=== PATIENT | female | born 1965 | race Caucasian/White ===

== ENCOUNTER 2020-10-31 09:58 | Outpatient (REF) | payer OTHER, SELFPAY ==
[2020-11-02 18:37] LABS: HPV mRNA E6/E7 Not Detected (Not Detected)
== END 2020-10-31 09:59 | disposition home or self-care (01) ==
LOC: HO.LAB 09:58
PROVIDERS: Visit Provider Internal Medicine
DX: Z01.419 Encounter for gynecological examination (general) (routine) without abnormal findings (principal)
CPT/HCPCS: 87624; 88142

== ENCOUNTER 2020-10-31 10:23 | Outpatient (REF) | payer OTHER, SELFPAY ==
[2020-10-31 11:22] LABS: Hematocrit 34.6 % (37-47); Hemoglobin 11.6 g/dl (12.0-16.0); Mean Corpuscular HGB Conc 33.5 g/dl (31.0-35.0); Mean Corpuscular Hemoglobin 29.4 pg (27.0-33.0); Mean Corpuscular Volume 87.8 fL (80-98); Platelet Count 229 X10*3/uL (160-400); Red Blood Count 3.94 X10*6/uL (4.20-5.50); Red Cell Distribution Width 13.3 % (11.0-16.0)
[2020-10-31 12:05] LABS: Alanine Aminotransferase 25 U/L (0-31); Albumin Level 4.4 g/dL (3.5-5.0); Alkaline Phosphatase 61 U/L (39-117); Anion Gap 13 (12-20); Aspartate Amino Transferase 20 U/L (5-31); Bilirubin Total 0.7 mg/dL (0.0-1.0); Blood Urea Nitrogen 14 mg/dL (9-16); Calcium 9.8 mg/dL (8.4-10.2); Carbon Dioxide 26 mmol/L (22-29); Chloride 107 mmol/L (96-108); Cholesterol 194 mg/dL; Estimated Glomerular Filt Rate > 60; Glucose Fasting 99 mg/dL (60-99); HDL Cholesterol 103 mg/dL; Iron 81 mcg/dL (30-160); LDL Cholesterol Calculated 81 mg/dl; Percent Iron Saturation 28 % (15-50); Potassium 3.6 mmol/L (3.3-5.1); Sodium 142 mmol/L (135-145); Total Iron Binding Capacity 293 mcg/dL (228-428); Triglycerides 50 mg/dL; Unsaturated Iron Binding 212 ug/dL
[2020-10-31 13:49] LABS: Glucose Urine UA NEG (NEG); Leukocyte Esterase Urine TRACE (NEG); Nitrite Urine NEG (NEG); PH 6.5 (5.0-8.0); Specific Gravity - Urine <= 1.005 (1.005-1.025); Urine Blood 2+ (NEG); Urine Ketones NEG (NEG); Urine Protein NEG (NEG-TRACE)
[2020-10-31 13:55] LABS: Appearance Urine CLEAR; Color Urine STRAW
[2020-10-31 14:09] LABS: Squamous Epithelial Cell Urine 1+ /LPF; WBC Urine 0 /HPF (0-4)
== END 2020-10-31 10:24 | disposition home or self-care (01) ==
LOC: HO.HMGCLDS 10:23
PROVIDERS: PCP Internal Medicine; Visit Provider Internal Medicine
DX: Z00.00 Encounter for general adult medical examination without abnormal findings (principal)
CPT/HCPCS: 36415; 80053; 80061; 81001; 83540; 84443; 85027

== ENCOUNTER 2023-07-30 09:45 | Outpatient (AMB) | payer OTHER, SELFPAY ==
[2023-07-30 09:48] VITALS: BP 120/78; PULSE 102; O2SAT 97; BMI 22.1
--- NOTE | 2023-07-30 09:48 | A.OFFPC_ITS ---
Vital Signs 07/30/23 09:48 Height 5 ft 5 in Weight 133 lb BMI 22.1 BP 120/78 Blood Pressure Location Rt brachial Position Sitting Pulse 102 H Pulse Source Pulse Oximeter Pulse Oximetry (%) 97 Oxygen Delivery Method Room Air Intake Visit Reasons: Sick visit (adolescent/adult) Intake Note: Pt is here today for a sick visit. Pt c/o L abdominal pain for about 2 weeks. Pt states that the pain starts after eating. Allergies No Known Allergies Allergy (Verified 07/30/23 09:54) Medication List - Last Reconciled 07/30/23 by Oma Christopher MD No Known Home Meds Tobacco use date assessed: 07/30/23 Dental Screening Dental Screen Date: 07/30/23 Did you have a dental visit in the last 12 months?: Yes Did you have a dental problem in the last 6 months where you did not have access to dental care?: No Was dental information given to patient?: Patient has dentist HPI Sick visit (adolescent/adult) HPI Details Pt c/o L side mid and lower abd pain worse after eating, radiating to L flank, increase bloating and intermittent constipation worse for the last 2 weeks. Patient denies nausea vomiting fever chills dysuria, hematuria pelvic pain. [facility] Medical History Microscopic hematuria Colonoscopy refused Mammogram declined Annual physical exam Surgical History No pertinent past surgical history Social History Housing: House Patient Tobacco Use Status: Never used Tobacco e-Cigarette/Vaping Use: Never Used Second Hand Smoke Exposure: No service: No Current occupational status: employed Current occupational exposures/hazards: No Cognitive needs: No Hearing needs: No Vision needs: Yes Questionnaire PHQ-9 Over the last 2 weeks, how often have you been bothered by any of the following problems? 1. Little interest or pleasure in doing things: not at all 2. Feeling down, depressed, or hopeless: not at all 3. Trouble falling or staying asleep, or sleeping too much: not at all 4. Feeling tired or having little energy: not at all 5. Poor appetite or overeating: not at all 6. Feeling bad about yourself - or that you are a failure or have let yourself or your family down: not at all 7. Trouble concentrating on things, such as reading the newspaper or watching television: not at all 8. Moving or speaking so slowly that other people could have noticed. Or the opposite - being so fidgety or restless that you have been moving around a lot more than usual: not at all 9. Thoughts that you would be better off or of hurting yourself in some way: not at all Total score: 0 Depression Screening Interpretation: Negative Depression Screening Done: Yes Source: Developed by Drs. Luis Joseph, Marianela Vasquez, Dalton Shaffer and colleagues, with an educational tico from [employer]. Thrive Questionnaire Date Thrive assessed: 07/30/23 I am a: Patient What is your living situation today?: I have a steady place to live Within the past 12 months, did the food you bought not last and you didn't have the money to get more?: Never true Within the past 12 months, did you worry whether your food would run out before you got money to buy more?: Never true Do you have trouble paying for medicines?: No Do you have trouble getting transportation to medical appointments?: No Do you have trouble paying your heating and electricity bill?: No Do you have trouble taking care of your child, family member or friend?: No Do you have trouble with day-to-day activities such as bathing, preparing meals, shopping, managing finances, etc.?: No Are you currently unemployed and looking for a job?: No Are you interested in more education?: No Please select the resources that you would like help with: None Currently or been in a relationship where the following occur: no concerns reported THRIVE Score: 0 AUDIT C Alcohol Use Questionnaire (AUDIT-C) 1. How often do you have a drink containing alcohol?: Never 3. How often do you have six or more drinks on one occasion?: Never Total Score: 0 DARYL-7 AMB Questionnaire DARYL-7 Date DARYL - 7 assessed: 07/30/23 Feeling nervous, anxious, or on edge: 0 = Not at all Not being able to stop or control worryin = Not at all Worrying too much about different things: 0 = Not at all Trouble relaxin = Not at all Being so restless that it is hard to sit still: 0 = Not at all Becoming easily annoyed or irritable: 0 = Not at all Feeling afraid as if something awful might happen: 0 = Not at all Total DARYL-7 score (0-4 normal; 5-9 mild; 10-14 moderate; 15-21 severe): 0 Source: Developed by Drs. Luis Joseph, Marianela Vasquez, Dalton Shaffer and colleagues, with an educational tico from [employer]. Review of Systems Const All systems reviewed & are unremarkable except as noted in HPI and below Eyes Reports no additional complaints ENT Reports no additional complaints Card Reports no additional complaints Resp Reports no additional complaints GI Reports no additional complaints Reports no additional complaints Physical exam (Primary Care) Vital Signs: Last Vital Signs Pulse 102 H 07/30/23 09:48 BP 120/78 07/30/23 09:48 Pulse Ox 97 07/30/23 09:48 Oxygen Delivery Method Room Air 07/30/23 09:48 BMI result Body Mass Index 22.1 Tobacco/Smoking Status: Tobacco use Status Tobacco use date assessed 07/30/23 07/30/23 09:58 Patient Tobacco Use Status Never used Tobacco 07/30/23 09:58 e-Cigarette/Vaping Use Never Used 07/30/23 09:58 PHQ-9: PHQ-9 Score PHQ-9: Total score 0 07/30/23 09:58 Depression Screening Interpretation: Negative Thrive Assessment: Date of Thrive Assessment Date Thrive assessed 07/30/23 07/30/23 09:58 Currently or been in a relationship where the following occur: no concerns reported Const General: no acute distress HENMT Face and sinus: Yes normal facial exam Resp Effort & Inspection: normal respiratory effort Auscultation: clear to auscultation bilaterally Cardio Rhythm: regular rhythm Heart sounds: S1 normal heart sound present and S2 normal heart sound present GI Inspection: Yes normal to inspection Palpation (GI): Soft to palpation, Tenderness to palpation present (GI) in the LLQ and No Rebound tenderness present Auscultation: normal bowel sounds Assessment and Plan Assessment & Plan (1) LLQ abdominal pain: Code(s): R10.32 - Left lower quadrant pain Plan: For left lower quadrant abdominal pain CT will be obtained to rule diverticulitis, basic labs and urinalysis will be checked. Patient will be referred to GI for colonoscopy Orders: Orders Comprehensive Met. Panel Today R10.32 - Left lower quadrant pain CT abdomen pelvis w IV con Today K57.92 - Diverticulitis of intestine, part unspecified, without perforation or abscess without bleeding, R10.32 - Left lower quadrant pain UA w Microscopic Today R10.32 - Left lower quadrant pain Complete Blood Count Auto Diff Today R10.32 - Left lower quadrant pain C Reactive Protein Today R10.32 - Left lower quadrant pain Referrals Gastroenterology Referral Z00.00 - Encounter for general adult medical examination without abnormal findings Coding Level of Care Code Est Pt Level 3 (05480) Diagnoses LLQ abdominal pain R10.32
== END 2023-07-30 10:49 | disposition home or self-care (01) ==
PROVIDERS: PCP Internal Medicine; Visit Provider Internal Medicine
DX: R10.32 Left lower quadrant pain (principal)
CPT/HCPCS: 99213

== ENCOUNTER 2023-07-30 10:43 | Outpatient (REF) | payer OTHER, SELFPAY ==
[2023-07-30 13:26] LABS: MANUAL DIFF FLAG NO
[2023-07-30 13:48] LABS: Basophils Percent Auto 0.5 % (0-2); Eosinophils Absolute Auto 0.1 X10*3/uL (0.0-0.4); Eosinophils Percent Auto 0.9 % (0-4); Hematocrit 35.9 % (37.0-47.0); Imm Gran Abs Auto 0.01 X10*3/uL (0.00-0.03); Imm Gran Pct Auto 0.2 % (0.0-0.4); Lymphocytes Absolute Auto 2.6 X10*3/uL (1.2-4.9); Lymphocytes Percent Auto 40.1 % (20-40); Mean Corpuscular HGB Conc 33.4 g/dl (31.0-35.0); Mean Corpuscular Hemoglobin 29.5 pg (27.0-33.0); Mean Corpuscular Volume 88.2 fL (80.0-98.0); Mean Platelet Volume 10.4 fL (9.4-12.3); Monocytes Absolute Auto 0.6 X10*3/uL (0.1-1.2); Monocytes Percent Auto 9.1 % (2-11); Neutrophils Absolute Auto 3.1 x10*3/uL (2.0-8.3); Neutrophils Percent Auto 49.2 % (45-73); Platelet Count 248 X10*3/uL (160-400); Red Blood Count 4.07 X10*6/uL (4.20-5.50); Red Cell Distribution Width 13.2 % (11.0-16.0); White Blood Count 6.4 X10*3/uL (4.8-10.8)
[2023-07-30 13:52] LABS: Appearance Urine Clear; Color Urine Yellow; Glucose Urine UA Negative (Negative); Leukocyte Esterase Urine Negative (Negative); Nitrite Urine Negative (Negative); Specific Gravity - Urine <= 1.005 (1.005-1.025); UMIC TRIGGER UA YES; Urine Blood Moderate (2+) (Negative); Urine Ketones Negative (Negative); Urine Protein Negative (Neg-Trace)
[2023-07-30 14:00] LABS: Bacteria Urine None Seen (None Seen); Hyaline Casts Urine 0-2 /LPF (0-2); Squamous Epithelial Cell Urine 0-2 /HPF (0-2); WBC Urine 0-5 /HPF (0-5)
[2023-07-30 14:26] LABS: Alanine Aminotransferase 25 U/L (0-31); Albumin Level 4.2 g/dL (3.5-5.0); Alkaline Phosphatase 59 U/L (39-117); Anion Gap 12 (12-20); Aspartate Amino Transferase 24 U/L (5-31); Bilirubin Total 0.4 mg/dL (0.0-1.0); Blood Urea Nitrogen 18 mg/dL (9-16); C Reactive Protein 0.14 mg/dL (< or = 0.50); Calcium 9.8 mg/dL (8.4-10.2); Carbon Dioxide 27 mmol/L (22-29); Chloride 107 mmol/L (96-108); Estimated Glomerular Filt Rate > 60; Glucose Random 102 mg/dL (60-115); Potassium 3.7 mmol/L (3.3-5.1); Sodium 142 mmol/L (135-145); Total Protein 7.3 g/dL (6.5-8.0)
== END 2023-07-30 10:44 | disposition home or self-care (01) ==
LOC: HO.HMGCLDS 10:43
PROVIDERS: PCP Internal Medicine; Visit Provider Internal Medicine
DX: R10.32 Left lower quadrant pain (principal)
CPT/HCPCS: 36415; 80053; 81001; 85025; 86140

== ENCOUNTER 2023-07-31 12:11 | Outpatient (REF) | payer OTHER, SELFPAY ==
--- NOTE | ~2023-07-31 | CT_ITS ---
EXAMINATION: CT ABDOMEN AND PELVIS WITH CONTRAST CLINICAL INFORMATION: Left lower quadrant pain. COMPARISON: None available. TECHNIQUE: Multidetector volumetric images were obtained from the superior aspect of the liver through the pubic symphysis following administration 85 mL of Omnipaque 350 intravenous contrast. Sagittal and coronal reformatted images were obtained on the technologist's workstation. Oral contrast: Yes. This CT examination was performed using dose optimization techniques as appropriate, variously including the following: *Automated exposure control *Adjustment of mA and/or kV according to patient size (this includes techniques or standardized protocols for targeted exams where dose is matched to indication/reason for exam; i.e. extremities or head) *Use of iterative reconstruction technique DLP: 291 mGy-cm FINDINGS: LUNG BASES: No pulmonary consolidation or pleural effusion. HEPATOBILIARY: Liver has normal size, shape, and attenuation. Gallbladder has a normal appearance. No dilated bile ducts. PANCREAS: No edema, pancreatic ductal dilatation or mass. SPLEEN: Normal. ADRENAL GLANDS: Normal. KIDNEYS AND URETERS: Kidneys have normal size and cortical thickness. No perinephric fluid collection, urolithiasis or hydroureteronephrosis. A simple cyst of the left lower pole is 1.1 cm AP. No renal imaging follow-up is recommended for simple cysts. BLADDER: Normal. BOWEL AND PERITONEUM: Stomach and small bowel are unremarkable. No dilated loops. The appendix is normal. No overt colonic wall thickening or mesenteric fat stranding. No free fluid or pneumoperitoneum. ABDOMINAL WALL: Unremarkable. VASCULATURE: Abdominal aorta is normal in caliber and its branches are widely patent. Inferior vena cava is normal. LYMPH NODES: No pathologic sized lymph nodes in the abdomen or pelvis. No inguinal lymphadenopathy. PELVIC VISCERA: No evidence of uterine or adnexal mass. No pelvic free fluid. MUSCULOSKELETAL: No acute or suspicious osseous abnormality. 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 CT/CT abdomen pelvis w IV con IMPRESSION: No acute imaging abnormalities in the abdomen or pelvis. No specific source of left lower quadrant pain is identified. There is no evidence of an inflammatory process, free fluid or free air.
[2023-07-31] MEDS: Barium Sulfate Oral (Mocha) 450 ML ORAL.SUSP 900 ML PO (15:10)
[2023-07-31] MEDS: iohexoL 350 MG/ML 75 ML INFUS..BTL 85 ML IV (15:11)
== END 2023-07-31 12:12 | disposition home or self-care (01) ==
LOC: HO.CT 12:11
PROVIDERS: PCP Internal Medicine; Visit Provider Internal Medicine
DX: R10.32 Left lower quadrant pain (principal); K57.92 Diverticulitis of intestine, part unspecified, without perforation or abscess without bleeding
CPT/HCPCS: 74177; Q9967

== ENCOUNTER 2023-08-07 09:18 | Outpatient (REF) | payer OTHER, SELFPAY ==
[2023-08-07 10:13] LABS: Urine Cytology See Pathology rpt
== END 2023-08-07 09:19 | disposition home or self-care (01) ==
LOC: HO.HMGCLDS 09:18
PROVIDERS: PCP Internal Medicine; Visit Provider Internal Medicine
DX: R31.29 Other microscopic hematuria (principal)
CPT/HCPCS: 87086; 88112

== ENCOUNTER 2023-09-26 10:03 | Outpatient (AMB) | payer OTHER, SELFPAY ==
--- NOTE | 2023-09-26 10:21 | MHC.OFFVIS ---
Intake Visit Reasons: micorscopic hematuria Intake Note: New patient is present for Microscopic Hematuria. Patient was referred by her Primary Physician Last Urine Cytology was performed July 2023 Patient states that she does not visibly see any blood in her urine only when she gets her urine checked. Antibiotic Allergies:None Blood Thinner: None Allergies No Known Allergies Allergy (Verified 10/21/23 13:15) HPI Comments Details: Wale schofield is a pleasant female. She is a patient of . She is seen following urologic conditions - microscopic hematuria Microscopic hematuria UA 1+ Imaging 08/19 CT left lower pole 1.5 cm simple cyst Cytology negative Recommend cystoscopy PFS Medical History Microscopic hematuria Colonoscopy refused Mammogram declined Annual physical exam Surgical History No pertinent past surgical history Social History Housing: House Patient Tobacco Use Status: Never used Tobacco e-Cigarette/Vaping Use: Never Used Second Hand Smoke Exposure: No service: No Current occupational status: employed Current occupational exposures/hazards: No Cognitive needs: No Hearing needs: No Vision needs: Yes Review of Systems Const Denies chills and Denies fever(s) Card Reports no additional complaints and Denies syncope Resp Denies cough GI Denies abdominal pain and Denies heartburn Reports as per HPI and Denies change in libido Neuro Denies syncope Psych Denies change in libido Endo Denies change in libido Physical Exam Const General: cooperative, healthy appearing, comfortable and no acute distress Orientation/consciousness: patient oriented x3 HEENT Face and sinus: Yes normal facial exam Mouth: moist mucous membranes Neck Neck: Yes normal visual inspection, Yes full ROM and Yes trachea midline Chest Chest palpation & inspection: normal inspection of the chest Resp Effort & Inspection: normal respiratory effort, able to speak in complete sentences and no respiratory distress GI Inspection: Yes normal to inspection Back/Spine/Pelvis Cervical Spine: normal cervical lordosis Thoracic/Lumbar Spine: thoracic and lumbar spine normal to inspection Skin General skin exam: no rashes or lesions noted Neuro General: patient oriented x3, gait normal, tone normal and moves all extremities Extrem General: Yes normal to inspection and Yes capillary refill normal Results AMB Urinalysis, Automated UA Leukoctes 0 Suzanna/uL Last Edit by Whit Conklin, [facility] on 09/26/23 10:33 UA Nitrite Negative Last Edit by Whit Conklin, A on 09/26/23 10:33 UA Urobilinogen 0.2 mg/dL Last Edit by Whit Conklin, A on 09/26/23 10:33 UA Protein 0 mg/dL Last Edit by Whit Conklin, A on 09/26/23 10:33 UA pH 7.0 Last Edit by Whit Conklin, A on 09/26/23 10:33 UA Blood 25 Chase/uL Last Edit by Whit Conklin [facility] on 09/26/23 10:33 UA Specific [place] 1.005 Last Edit by Whit Conklin, A on 09/26/23 10:33 UA Ketone Negative Last Edit by Whit Conklin [facility] on 09/26/23 10:33 UA Bilirubin 0 mg/dL Last Edit by Whit Conklin [facility] on 09/26/23 10:33 UA Glucose 0 mg/dL Last Edit by Whit Conklin, [facility] on 09/26/23 10:33 Results Reviewed Results Reviewed: Laboratory Last Values Urine pH (Auto) 7.0 09/26/23 10:33 Specific [place] (Auto) 1.005 09/26/23 10:33 Urine Protein (Auto) 0 mg/dL 09/26/23 10:33 Glucose (UA)(Auto) 0 mg/dL 09/26/23 10:33 Urine Ketones (Auto) Negative 09/26/23 10:33 Urine Blood (Auto) 25 Chase/uL 09/26/23 10:33 Urine Nitrite (Auto) Negative 09/26/23 10:33 Urine Bilirubin (Auto) 0 mg/dL 09/26/23 10:33 Urine Urobilinogen (Auto) 0.2 mg/dL 09/26/23 10:33 Leukocyte Esterase (Auto) 0 Suzanna/uL 09/26/23 10:33 Assessment & Plan Assessment & Plan (1) Microscopic hematuria: Code(s): R31.29 - Other microscopic hematuria Category: Medical Plan Cystoscopy Orders: Orders AMB Urinalysis Automated 09/26/23 Z13.9 - Encounter for screening, unspecified, R31.29 - Other microscopic hematuria Patient Instructions: Imaging studies, laboratory and physical exam results were discussed and reviewed in detail. No major barriers to patient understanding were identified. An opportunity to ask questions regarding the treatment plan was provided. All questions were answered. The patient expressed understanding and agreement with the above treatment plan. The patient is aware they should contact our office by phone for worsening of their current condition or the appearance of new urologic symptoms. Compliance is encouraged with any medications and followup testing that is ordered. It is a privilege to participate in the urologic care of your patient. If you have any questions or concerns regarding treatment for the above conditions, or other urologic issues, please do not hesitate to contact me. The office telephone contact is [phone]. This note is constructed using voice recognition software. While every effort has been made to ensure accuracy audioprosthologist errors may have been included. Yours sincerely, Dr Alfonso Cartagena MD, [facility] - Urology Providers of Expert, Compassionate Care for the Genitourinary System Coding Level of Care Code New Pt Level 3 (78000) Diagnoses Microscopic hematuria R31.29
== END 2023-09-26 11:29 | disposition home or self-care (01) ==
PROVIDERS: PCP Internal Medicine; Visit Provider Urology
DX: R31.29 Other microscopic hematuria (principal)
CPT/HCPCS: 99203

== ENCOUNTER → 2023-09-26 10:03 | Outpatient (BNVA) | payer OTHER, SELFPAY | PROVIDERS: PCP Internal Medicine; Visit Provider Urology | DX: R31.29 Other microscopic hematuria (principal) | CPT/HCPCS: 81003 ==

== ENCOUNTER 2023-10-21 12:52 | Outpatient (AMB) | payer OTHER, SELFPAY ==
[2023-10-21 13:12] VITALS: BP 120/66; PULSE 108; TEMP 37.4; O2SAT 98; BMI 21.1
--- NOTE | 2023-10-21 13:12 | MHC.PC.OV ---
Vital Signs 10/21/23 13:12 Height 5 ft 5 in Weight 127 lb BMI 21.1 BP 120/66 Blood Pressure Location Lt brachial Position Sitting Pulse 108 H Pulse Source Pulse Oximeter Temp 99.4 F Temp Source Oral Pulse Oximetry (%) 98 Oxygen Delivery Method Room Air Intake Visit Reasons: fever, ear and back pain Intake Note: Pt is here today for a sick visit. Pt c/o fever, lower back pain, stiff neck. Pt states that she needs a work note. Allergies No Known Allergies Allergy (Verified 10/21/23 13:15) Medication List - Last Reconciled 10/21/23 by Oma Christopher MD No Known Home Meds Tobacco use date assessed: 10/21/23 Dental Screening Dental Screen Date: 07/30/23 HPI fever, ear and back pain HPI Details Pt presents c/o fever, chills, body aches, L ear discomfort and dry cough for 4 days. She denies sore throat sputum production pleurisy. [facility] Medical History Microscopic hematuria Colonoscopy refused Mammogram declined Annual physical exam Surgical History No pertinent past surgical history Social History Housing: House Patient Tobacco Use Status: Never used Tobacco e-Cigarette/Vaping Use: Never Used Second Hand Smoke Exposure: No service: No Current occupational status: employed Current occupational exposures/hazards: No Cognitive needs: No Hearing needs: No Vision needs: Yes Questionnaire Thrive Questionnaire Date Thrive assessed: 07/30/23 DARYL-7 AMB Questionnaire DARYL-7 Date DARYL - 7 assessed: 07/30/23 Source: Developed by Drs. Luis Joseph, Marianela Vasquez, Dalton Shaffer and colleagues, with an educational tico from [employer]. Review of Systems Const All systems reviewed & are unremarkable except as noted in HPI and below ENT Reports no additional complaints Card Reports no additional complaints Resp Reports no additional complaints GI Reports no additional complaints Reports no additional complaints Physical exam (Primary Care) Vital Signs: Last Vital Signs Temp 99.4 F 10/21/23 13:12 Pulse 108 H 10/21/23 13:12 BP 120/66 10/21/23 13:12 Pulse Ox 98 10/21/23 13:12 Oxygen Delivery Method Room Air 10/21/23 13:12 BMI result Body Mass Index 21.1 Tobacco/Smoking Status: Tobacco use Status Tobacco use date assessed 10/21/23 10/21/23 13:17 Patient Tobacco Use Status Never used Tobacco 10/21/23 13:17 e-Cigarette/Vaping Use Never Used 10/21/23 13:17 Thrive Assessment: Date of Thrive Assessment Date Thrive assessed 07/30/23 10/21/23 13:17 Const General: no acute distress HENMT Head: Yes normal to inspection Ears: hearing grossly normal bilaterally and TM's normal bilaterally Face and sinus: Yes normal facial exam Throat: Yes posterior oropharynx normal Eyes General: appearance normal, both eyes and all related structures Neck Neck: Yes no lymphadenopathy and Yes supple Resp Effort & Inspection: normal respiratory effort Auscultation: clear to auscultation bilaterally Cardio Rhythm: regular rhythm Heart sounds: S1 normal heart sound present and S2 normal heart sound present GI Inspection: Yes normal to inspection Palpation (GI): Soft to palpation Assessment and Plan Assessment & Plan (1) Viral syndrome: Code(s): B34.9 - Viral infection, unspecified Plan: Supportive care discussed with the patient, check respiratory panel Coding Level of Care Code Est Pt Level 3 (66102) Diagnoses Viral syndrome B34.9
== END 2023-10-21 13:42 | disposition home or self-care (01) ==
PROVIDERS: PCP Internal Medicine; Visit Provider Internal Medicine
DX: B34.9 Viral infection, unspecified (principal)
CPT/HCPCS: 99213

== ENCOUNTER 2023-10-21 13:45 | Outpatient (REF) | payer OTHER, SELFPAY ==
[2023-10-21 17:44] LABS: Influenza A PCR NEGATIVE (Negative); Influenza B PCR NEGATIVE (Negative); Resp Syncy Virus RNA Qual PCR NEGATIVE (Negative); SARS COV2 PCR INHOUSE NEGATIVE (Negative)
== END 2023-10-21 13:46 | disposition home or self-care (01) ==
LOC: HO.LAB 13:45
PROVIDERS: Visit Provider Internal Medicine
DX: J06.9 Acute upper respiratory infection, unspecified (principal)
CPT/HCPCS: 0241U